=== PATIENT | female | born 1990 | race Caucasian/White ===

== ENCOUNTER 2023-06-30 10:30 | Inpatient (IN) | payer OTHER ==
[2023-06-30 12:38] VITALS: BMI 40.3
[2023-06-30] MEDS ORDERED: CITRIC ACID/SODIUM CITRATE 30 ML UNIT-DOSE CUP PO ONE (13:26)
[2023-06-30] MEDS ORDERED: ELECTROLYTE-148 SOLN 500 ML IV ONE (13:26)
[2023-06-30] MEDS ORDERED: ELECTROLYTE-148 SOLN 1,000 ML IV SCH (13:30)
[2023-06-30] MEDS ORDERED: morphine SULFATE/PF 1 MG/2 ML (2cc Syringe - QUVA) EP ONE (14:11)
[2023-06-30] MEDS ORDERED: ACETAMINOPHEN 325 MG TABLET (FP) PO PRN ×2 (14:11→15:50)
[2023-06-30] MEDS ORDERED: ONDANSETRON 4 MG/2 ML VIAL IVPUSH PRN (14:11)
[2023-06-30] MEDS ORDERED: morphine SULFATE/PF 1 MG/2 ML (2cc Syringe - QUVA) ONE (14:21)
[2023-06-30] MEDS ORDERED: ePHEDrine SULFATE 50 MG/1 ML AMPULE ONE (14:30)
[2023-06-30] MEDS ORDERED: ceFAZolin SODIUM 1 GM VIAL ONE (14:31)
[2023-06-30] MEDS ORDERED: OXYTOCIN 10 UNITS/ML VIAL ONE ×2 (14:42→15:08)
[2023-06-30] MEDS: OXYTOCIN 20 UNITS in 0.9% NS 20 UNIT/1,000 ML INFUS.BAG IV SCH ×2 (14:47→20:16)
[2023-06-30] MEDS ORDERED: ONDANSETRON 4 MG/2 ML VIAL ONE (14:58)
[2023-06-30] MEDS ORDERED: IBUPROFEN 800 MG/8 ML IJ IVPB PRN (15:50)
[2023-06-30] MEDS ORDERED: METHYLERGONOVINE MALEATE 0.2 MG/1 ML AMP IM PRN (15:50)
[2023-06-30] MEDS ORDERED: OXYTOCIN 20 UNITS in 0.9% NS 20 UNIT/1,000 ML INFUS.BAG IV ONE (16:24)
[2023-07-01] MEDS ORDERED: oxyCODONE HCL 5 MG TABLET PO PRN ×2 (03:50)
[2023-07-01] MEDS: IBUPROFEN 600 MG TABLET (FP) PO PRN ×3 (07:10→23:07)
[2023-07-01 07:22] LABS: BASO % 0.1 % (0-2.0); EOS % 0.2 % (0-4.5); LYMPH % 7.3 % (8-40); MCH 28.1 pg (25.7-33.7); MCHC 34.6 g/dl (32.0-36.0); MEAN CELL VOLUME 81.4 fl (80-96); MEAN PLT VOLUME 8.3 fl (7.5-11.1); MONO % 5.6 % (3.8-10.2); NEUT % 86.8 % (42.8-82.8); PLATELET COUNT 267 10^3/uL (134-434); RBC 3.57 M/mm3 (3.60-5.2); RDW 14.2 % (11.6-15.6); WHITE BLOOD COUNT 9.8 K/mm3 (4.0-10.0)
[2023-07-01] MEDS: PRENATAL VITAMINS W/ FOLIC ACID TABLET (FP) PO SCH (09:17)
[2023-07-01] MEDS: FERROUS SO4 325 MG TABLET (FP) PO SCH ×2 (09:17→21:24)
[2023-07-01] MEDS ORDERED: BISACODYL 10 MG SUPP.RECT RC PRN (15:50)
[2023-07-01] MEDS: SIMETHICONE 80 MG TAB.CHEW (FP) PO PRN ×2 (19:16→23:07)
[2023-07-01] MEDS: SENNOSIDES/DOCUSATE COMBO (SENNA PLUS) TABLET (UD) PO PRN (19:19)
[2023-07-02] MEDS: SIMETHICONE 80 MG TAB.CHEW (FP) PO PRN ×3 (05:16→20:33)
[2023-07-02] MEDS: IBUPROFEN 600 MG TABLET (FP) PO PRN ×3 (05:16→18:02)
[2023-07-02] MEDS: FERROUS SO4 325 MG TABLET (FP) PO SCH ×2 (09:47→21:50)
[2023-07-02] MEDS: PRENATAL VITAMINS W/ FOLIC ACID TABLET (FP) PO SCH (09:47)
[2023-07-02] MEDS: SENNOSIDES/DOCUSATE COMBO (SENNA PLUS) TABLET (UD) PO PRN (20:33)
[2023-07-03] MEDS: IBUPROFEN 600 MG TABLET (FP) PO PRN (00:07)
[2023-07-03] MEDS: SIMETHICONE 80 MG TAB.CHEW (FP) PO PRN (08:37)
[2023-07-03] MEDS: FERROUS SO4 325 MG TABLET (FP) PO SCH (09:49)
[2023-07-03] MEDS: PRENATAL VITAMINS W/ FOLIC ACID TABLET (FP) PO SCH (09:49)
[2023-07-03 09:54] VITALS: BP 123/74; PULSE 75; RESP 18; TEMP 97.6
== END 2023-07-03 14:45 | disposition home or self-care (01) | DRG 540 ==
LOC: JLDR 10:30 → J3W 17:00
PROVIDERS: ADMIT Obstetrics & Gynecology; ATTEND Obstetrics & Gynecology
PROC: 10D00Z1 Extraction of Products of Conception, Low, Open Approach (ICD-10-PCS; principal; 2023-06-30)
DX: O76 Abnormality in fetal heart rate and rhythm complicating labor and delivery (principal); Z3A.39 39 weeks gestation of pregnancy; Z37.0 Single live birth
CPT/HCPCS: 36415; 80048; 85025; 85610; 85730; 86780; 86850; 86900; 86901; 87389; 88307-TC; 94010